=== PATIENT | female | born 1990 | race Caucasian/White ===

== ENCOUNTER 2018-03-30 11:44 | Emergency (ER) | payer OTHER ==
[2018-03-30 11:44] VITALS: BMI 29.2
[2018-03-30 12:08] VITALS: BP 119/76; PULSE 103; RESP 18; TEMP 98; O2SAT 98
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
== END 2018-03-30 13:30 | disposition home or self-care (01) ==
LOC: C.ER 11:44
DX: M54.6 Pain in thoracic spine (principal); S13.9XXA Sprain of joints and ligaments of unspecified parts of neck, initial encounter; V49.49XA Driver injured in collision with other motor vehicles in traffic accident, initial encounter; Y92.410 Unspecified street and highway as the place of occurrence of the external cause